=== PATIENT | female | born 1960 | race Caucasian/White ===

== ENCOUNTER 2019-04-01 07:11 | Outpatient (CLI) | payer MEDICARE, MEDICAID, SELFPAY ==
[2019-04-01 07:25] VITALS: BP 129/70; PULSE 87; RESP 18; TEMP 36.1; O2SAT 94
--- NOTE | 2019-04-01 08:51 | PC.NURSE ---
PATIENTS HGB WAS 9.3. NOTIFIED [facility], AND THEY NOTIFIED CHIKIS ARIAS. NO BLOOD TO BE GIVEN.
== END 2019-04-01 07:12 | disposition home or self-care (01) ==
PROVIDERS: PCP Family Medicine; Visit Provider Nurse Practitioner Family
DX: D64.9 Anemia, unspecified (principal)
CPT/HCPCS: 36415

== ENCOUNTER 2019-04-16 07:00 | Outpatient (CLI) | payer MEDICARE, MEDICAID, SELFPAY | END 2019-05-02 08:00 | disposition home or self-care (01) | LOC: GILAB 10-28 12:28 | PROVIDERS: PCP Family Medicine; Visit Provider Nurse Practitioner Family | DX: D64.9 Anemia, unspecified (principal) | CPT/HCPCS: 36415; 86850; 86900 ==

== ENCOUNTER → 2020-02-10 11:52 | Day surgery (SDC) | payer MEDICARE, MEDICAID, SELFPAY ==
[2020-02-10 12:30] LABS: Hematocrit 29.7 % (37.0-47.0)
== END ==
PROVIDERS: PCP Family Medicine; Visit Provider Family Medicine
DX: D64.9 Anemia, unspecified (principal)
CPT/HCPCS: 85014; 85018

== ENCOUNTER → 2020-02-18 06:54 | Day surgery (SDC) | payer MEDICARE, MEDICAID, SELFPAY ==
[2020-02-18 07:52] LABS: Hemoglobin 8.1 g/dL (11.5-15.3)
[2020-02-18 09:01] VITALS: BP 152/82; PULSE 85; RESP 18; TEMP 36.2; O2SAT 95
--- NOTE | 2020-02-18 09:03 | PC.NURSE ---
Blood transfusion cancelled d/t hgb 8.1. Dr. Brynn Owen notified of this and stated to cancel transfusion today and patient will have labs checked again later this week.
== END ==
PROVIDERS: PCP Family Medicine; Visit Provider Family Medicine
DX: D64.9 Anemia, unspecified (principal)
CPT/HCPCS: 36415; 85014; 85018

== ENCOUNTER → 2020-02-25 07:59 | Day surgery (SDC) | payer MEDICARE, MEDICAID, SELFPAY ==
[2020-02-25] VITALS (11 sets, daily range): BP systolic 90–142; BP diastolic 53–86; PULSE 66–99; RESP 16–18; TEMP 36.1–36.6; O2SAT 91–99; BMI 34.5
[2020-02-25] MEDS: acetaminophen 325 mg Tablet 650 MG PO (09:10)
[2020-02-25] MEDS: diphenhydrAMINE 25 mg Capsule PO (10:25)
--- NOTE | 2020-02-25 11:00 | PC.NURSE ---
Consent obtained and verification performed. Pre-transfusion meds given, Blood started. VSS. Patient tolerating well without difficulty. Lungs clear per auscultation. Patient sleeping after Benadryl. 3 L NC applied.
--- NOTE | 2020-02-25 14:47 | SUR.OPER ---
13:55 second unit of PRBC infusing at 150ml/hr. Patient resting in no distress.PO fluids given.
--- NOTE | 2020-04-08 08:12 | PC.NURSE ---
0730 Pt was to receive 2 units PRBC's. Hemoglobin prior to transfusion noted at 9.3. Dr. Laurence Owen notified. Orders received to cancel blood transfusion. [facility] called and updated. [facility] by medical transportation.
== END ==
PROVIDERS: PCP Family Medicine; Visit Provider Family Medicine
DX: D64.9 Anemia, unspecified (principal)
CPT/HCPCS: 36415; 36430; 86850; 86900; 86920; 96365; 96366; P9016

== ENCOUNTER 2020-03-11 11:50 | Outpatient (CLI) | payer MEDICARE, MEDICAID, SELFPAY ==
[2020-03-11 12:46] LABS: Basophils # 0.1 10^3/uL (0.0-0.1); Basophils % 1.1 %; Eosinophils # 0.4 10^3/uL (0.0-0.8); Eosinophils % 7.8 %; Hemoglobin 9.7 g/dL (11.5-15.3); Lymphocytes # 1.3 10^3/uL (0.8-4.8); Lymphocytes % 26.3 %; Mean Corpuscular HGB Conc 31.3 g/dL (30.0-36.0); Mean Corpuscular Hemoglobin 32.9 pg (28.0-34.0); Mean Corpuscular Volume 105.1 fL (81-99); Mean Platelet Volume 8.6 fL (7.4-10.4); Monocytes # 0.7 10^3/uL (0.2-0.9); Monocytes % 15.3 %; Neutrophils # 2.31 10^3/uL (1.8-7.7); Neutrophils % 48.4 %; Nucleated Red Blood Cells % 0 %; Platelet Count 201 10^3/cmm (130-400); Red Blood Count 2.95 10^6/uL (4.1-5.3); Red Cell Distribution Width 14.7 % (12.1-15.1); White Blood Count 4.8 10^3/uL (4.0-10.0)
[2020-03-11 15:56] LABS: Folate Level 5.2 ng/mL (4.8-37.3)
[2020-03-11 15:57] LABS: Lactate Dehydrogenase 256 U/L (135-214); Thyroid Stimulating Hormone 1.36 uIU/mL (0.27-4.20); Vitamin B12 332 pg/mL (232-1245)
--- NOTE | 2020-03-11 16:38 | ONC CON_ITS ---
Dr. Aldana New Patient Note Patient: Marisa Rincon Unit #: [id number]: [id number] Dicatated By: Nery Aladna M.D.Date of Visit: Mar 11, 2020 Onc MED New Patient/Consult Referring Physician: Dr. Antoine Ayala M.D. History of Present Illness: Mr. Marisa Rincon, is a 59-year-old female, who is a [facility] resident due to right-sided stroke, as per patient it happened during brain surgery for tuberosclerosis, history of status epilepticus, now with end-stage renal disease, followed by nephrology. History of acute/chronic cystitis and recurrent urine tract infection as per patient she has anemia problems since last year and required blood transfusion in December and then in January 2019 and then again on regular basis in March 2019 then April 2019 and then recently on February 10, 2020 and the last one was on February 25, 2020, every time she would receive 2 units of packed RBCs. As per medical record patient underwent EGD and colonoscopy on July 26, 2018 and showed no significant abnormality except gastric polyps/gastritis and also underwent capsule endoscopy on January 13, 2019 which showed no AVMs or potential bleeding sites seen. Anemia work-up done in [facility] office including CBC on January 30, 2020 which showed white blood count was 4.3 hemoglobin 7. 2 g, hematocrit 24 MCV 113.2 platelets 231,000 and repeat CBC on February 09, 2020 shows white blood count 5.8 hemoglobin 7.4 hematocrit 23.4 platelets 301,000 then CBC done on February 16, 2020 showed hemoglobin 7.2 hematocrit 26.1 MCV 112.1, patient was given 2 units of packed RBCs on February 10, 2020, as mentioned above and on February 25, 2020 and iron studies done on February 23, 2020 showed iron 97, iron saturation 37, TIBC 264, ferritin 1170, folate 4.6 and B12 was 96 normal being 230-1050 Patient denies any history of jaundice denies any history of urine or stool color changes denies any history of weight loss or recurrent fever or night sweats, denies any history of peripheral lymphadenopathy or abdominal fullness. Patient said she has history of kidney disease and now hemodialysis under consideration. Patient denies any smoking or alcohol use. Past Medical History: Ms. Ariass medical history consists of benign neoplasm of bilateral kidneys, chronic kidney disease, chronic obstructive pulmonary disease, convulsions, depression, gastroesophageal reflux disease, hypertension, and stroke. Past Surgical History: Ms. Choudhary surgical/procedural history consists of appendectomy, cholecystectomy, and tonsillectomy. Medications: Acetaminophen 2 Tablet (of 325 mg) Oral four times a day, ALPRAZolam 1 Tablet (of 0.5 mg) Oral b.i.d. PRN, ALPRAZolam 1 Tablet (of 0.5 mg) Oral daily, Cymbalta 1 Capsule (of 60 mg) Capsule Delayed Release Particles Oral daily, Divalproex Sodium 2 Tablet (of 500 mg) Tablet, enteric coated Oral at bedtime, Dulcolax 1 Suppository (of 10 mg) Rectal PRN, Keppra 2 Tablet (of 500 mg) Oral b.i.d., LaMICtal 1 Tablet (of 150 mg) Oral b.i.d., MiraLax (17 g) Pack Oral daily, Ondansetron HCl 1 Tablet (of 4 mg) Oral q 6 hours PRN, oxyCODONE-Acetaminophen 1 Tablet (of 5-325 mg) Oral q 4 hours PRN, Phenylephrine-[place] Butter Suppository Rectal PRN, Protonix 1 Tablet (of 40 mg) Tablet, enteric coated Oral daily, Senna 2 Capsule (of 8.6 mg) Oral at bedtime, Simvastatin 1 Tablet (of 20 mg) Oral at bedtime Allergies: Zonegran Social History: Ms. Rincon is single. Ms. Rincon has never smoked. She has no history of drinking. Family History: There is no documented family history. Review Of Symptoms: Constitutional - Appetite is good and weight is stable. No fever, night sweats, or hot flashes. Energy level is fair, ENMT - No sinus congestion/drainage. No mouth sores. No sore throat or difficulty swallowing, Hematologic/Lymphatic - No abnormal bruising or bleeding, Respiratory - Positive for shortness of breath. No cough. No pleuritic pain or hemoptysis, Cardiovascular - No angina pain. No palpitations, Gastrointestinal - No nausea or vomiting. Positive for heartburn and acid reflux. No diarrhea or constipation. No blood in the stool or black stools, Genitourinary (F) - No dysuria or hematuria. No urinary frequency. No urgency. Positive for incontinence, Musculoskeletal - Positive for joint pain, Neurologic - Positive for headache. No dizziness. Positive for numbness in right hand. No other focal neurologic symptoms, Psychiatric - No anxiety. Positive for occasional depression, Pt states she is being treated for this. No insomnia. Vital Signs: Performed on Mar 11, 2020 13:50: 0, 35.15 (HIGH), 1.78 sq.m, 60 in, 95 % (LOW), 95 /min, 16 /min, 115/67 mm(hg), 97.2 F (LOW), and 180 lbs (HIGH). Performance Status: 3 - Capable of only limited self-care, confined to bed or chair more than 50% of waking hours. (ECOG) Physical Examination: ENMT - no mouth sores, no thrush, no jaundice, Respiratory - Lungs are clear to auscultation, Cardiovascular - Regular rate and rhythm of heart, Abdomen - Soft, bowel sounds present, Extremities - , Right leg in the brace and right arm deformity but no visible edema. Lab/Imaging: Most recent lab results are not available for this patient. Impression: Macrocytic anemia most likely due to B12 deficiency as her labs done on February 23, 2020 showed B12 was 96 pg/mL normal being 230-1050, etiology of B12 deficiency could be due to malabsorption or antiseizure medication or bacterial overgrowth or excessive consumption, or hemolysis History of seizure/status epilepticus on antiseizure medication Keppra End-stage renal disease, now hemodialysis under consideration Recurrent anemia requiring multiple blood transfusion Plan: Discussed with patient regarding her labs white blood count 4.8 hemoglobin 9.7 hematocrit 31 platelets 201,000 MCV 105.1 with a normal differential Clinically, patient doing reasonably well, no new signs symptoms but with multiple comorbid conditions, her etiology of macrocytic anemia is most likely due to severe B12 deficiency which could be due to either malabsorption or bacterial overgrowth or antiseizure medication or excessive consumption. At this point we will recommend B12 supplement 1000 mcg IM weekly x4 followed by every 2 weeks until normalize followed by monthly maintenance other possibilities for macrocytic anemia could be hemolysis, so we will check serum haptoglobin, LDH, Isaac test, reticulocyte count, serum folate level, B12 level, TSH and abdominal sonogram to check spleen size and SPEP, patient return to clinic in 1 week with CBC. Signed By: Nery Aldana M.D. <<Signature on File>>
[2020-03-12 08:22] LABS: PROTEIN, TOTAL 6.2 g/dL (6.1-8.1)
[2020-03-15 16:03] LABS: ALBUMIN 3.1 g/dL (3.8-4.8); ALPHA 1 GLOBULIN 0.4 g/dL (0.2-0.3); ALPHA 2 GLOBULIN 0.8 g/dL (0.5-0.9); BETA 1 GLOBULIN 0.5 g/dL (0.4-0.6); BETA 2 GLOBULIN 0.3 g/dL (0.2-0.5); GAMMA GLOBULIN 1.1 g/dL (0.8-1.7)
== END 2020-03-11 11:51 | disposition home or self-care (01) ==
LOC: ONCMED 11:53
PROVIDERS: PCP Family Medicine; Visit Provider Internal Medicine Hematology & Oncology
DX: D53.9 Nutritional anemia, unspecified (principal); E53.8 Deficiency of other specified B group vitamins; G40.909 Epilepsy, unspecified, not intractable, without status epilepticus; N18.6 End stage renal disease; D63.1 Anemia in chronic kidney disease; Z79.899 Other long term (current) drug therapy
CPT/HCPCS: 36415; 82607; 82746; 83010; 83615; 84155; 84165; 84443; 85025; 85045; 86880; 99203

== ENCOUNTER 2020-03-17 09:40 | Outpatient (RCR) | payer MEDICARE, MEDICAID, SELFPAY ==
[2020-03-15 14:20] LABS: Basophils % 0.5 %; Eosinophils # 0.3 10^3/uL (0.0-0.8); Hematocrit 31.7 % (37.0-47.0); Hemoglobin 9.7 g/dL (11.5-15.3); Lymphocytes % 33.9 %; Mean Corpuscular HGB Conc 30.6 g/dL (30.0-36.0); Mean Corpuscular Volume 107.8 fL (81-99); Mean Platelet Volume 8.6 fL (7.4-10.4); Monocytes # 0.6 10^3/uL (0.2-0.9); Monocytes % 10.8 %; Neutrophils # 2.82 10^3/uL (1.8-7.7); Neutrophils % 48.9 %; Nucleated Red Blood Cells % 0 %; Platelet Count 209 10^3/cmm (130-400); Red Blood Count 2.94 10^6/uL (4.1-5.3); Red Cell Distribution Width 14.6 % (12.1-15.1); White Blood Count 5.8 10^3/uL (4.0-10.0)
--- NOTE | 2020-03-22 09:12 | ONC FU_ITS ---
[facility] Patient Note Patient: Marisa Rincon Unit #: [id number]: [id number] Dictated By: Jess ThompsonDate of Visit: Mar 17, 2020 Onc MED Follow-Up/Prog Note Chief Complaint: Macrocytic anemia History of Present Illness: Ms Rincon is a 59-year-old female, who is a [facility] resident due to right-sided stroke. Ms Rincon reports the stroke happened during brain surgery for tuberosclerosis, history of status epilepticus. She now with end-stage renal disease. She is followed by Dr Herman, nephrology. Ms Rincon also has a history of acute/chronic cystitis and recurrent urine tract infections. She reports that she has anemia problems since last year and required blood transfusion in December 2018, January 2019, March 2019 and April 2019. She required transfusion services again on February 10, 2020 and the last one was on February 25, 2020. She reports that with each transfusion she would receive 2 units of packed RBCs. As per her medical record, she underwent EGD and colonoscopy on July 26, 2018 and showed no significant abnormality except gastric polyps/gastritis and also underwent capsule endoscopy on January 13, 2019 which showed no AVMs or potential bleeding sites seen. Anemia work-up done in [facility] office including CBC on January 30, 2020 which showed white blood count was 4.3 hemoglobin 7. 2 g, hematocrit 24 MCV 113.2 platelets 231,000 and repeat CBC on February 09, 2020 shows white blood count 5.8 hemoglobin 7.4 hematocrit 23.4 platelets 301,000. CBC done on February 16, 2020 showed hemoglobin 7.2 hematocrit 26.1 MCV 112.1, patient was given 2 units of packed RBCs on February 10, 2020, as mentioned above and on February 25, 2020 and iron studies done on February 23, 2020 showed iron 97, iron saturation 37, TIBC 264, ferritin 1170, folate 4.6 and B12 was 96 normal being 230-1050. She denies any history of jaundice denies any history of urine or stool color changes denies any history of weight loss or recurrent fever or night sweats, denies any history of peripheral lymphadenopathy or abdominal fullness. Ms Rincon states she has history of kidney disease and now hemodialysis under consideration. She follows with Dr Herman in [place], [place]-she sees him locally and is due to see geoff again on 05/05/2020. She denies any smoking or alcohol use. Ms. Rincon is here today for a 1 week follow-up. She did see Dr. Aldana last week. She was started on B12 1000 mcg IM weekly which is being given at the [facility] in which she resides. He also requested additional labs to rule out hemolysis and requested a abdominal ultrasound to check the spleen size. The ultrasound has not yet been obtained. Her LDH was 256, folic acid 5.2, vitamin B12 332 and TSH was 1.36. Her retic count was 1.23. Her hemoglobin on 03/11/2020 was 9.7. Direct Isaac was negative. She is here today to review results of her labs as her ultrasound has not yet been obtained. We discussed her labs which are nonspecific and we are waiting for the ultrasound to be done and reported. She has no new concerns. She denies any fever or chills. She states she did get her B12 last week and tolerated this well. She denies any nausea or vomiting. She has had some intermittent constipation and diarrhea but states this is normal for her. She denies any new shortness of breath orthopnea. Her mobility is limited due to the stroke and she utilizes a power chair for mobility. She is accompanied by family at this visit. Her ECOG is 3. Past Medical History: Benign neoplasm of bilateral kidneys Chronic kidney disease Chronic obstructive pulmonary disease Convulsions Depression Gastroesophageal reflux disease Hypertension Stroke COVID in 2020 Past Surgical History: Appendectomy Cholecystectomy Tonsillectomy Allergies: Zonegran Medications: Acetaminophen 2 Tablet (of 325 mg) Oral four times a day ALPRAZolam 1 Tablet (of 0.5 mg) Oral b.i.d. PRN ALPRAZolam 1 Tablet (of 0.5 mg) Oral daily Cymbalta 1 Capsule (of 60 mg) Capsule Delayed Release Particles Oral daily Divalproex Sodium 2 Tablet (of 500 mg) Tablet, enteric coated Oral at bedtime Dulcolax 1 Suppository (of 10 mg) Rectal PRN Keppra 2 Tablet (of 500 mg) Oral b.i.d. LaMICtal 1 Tablet (of 150 mg) Oral b.i.d. MiraLax (17 g) Pack Oral daily Ondansetron HCl 1 Tablet (of 4 mg) Oral q 6 hours PRN oxyCODONE-Acetaminophen 1 Tablet (of 5-325 mg) Oral q 4 hours PRN Phenylephrine-[place] Butter Suppository Rectal PRN Protonix 1 Tablet (of 40 mg) Tablet, enteric coated Oral daily Senna 2 Capsule (of 8.6 mg) Oral at bedtime Simvastatin 1 Tablet (of 20 mg) Oral at bedtime Family History: Social History: Ms. Rincon is single. Ms. Rincon has never smoked. She has no history of drinking. Review Of Symptoms: Constitutional Denies fevers, chills, night sweats, excessive fatigue or weight loss. Allergic/Immunologic No reactions. Eyes Denies significant visual changes. No diplopia. No amaurosis. ENMT Denies changes in hearing, sore throat, mouth sores, difficulty or changes in swallowing ability, and/or sinus drainage. Endocrine No diabetes, thyroid disease or hormone replacement. Denies hot flashes or night sweats. Hematologic/Lymphatic Denies easy bruising or bleeding. The patient denies any tender or palpable lymph nodes. Respiratory Denies dyspnea on exertion, chest pain, cough or hemoptysis. Denies orthopnea. Cardiovascular Denies anginal chest pain, palpitations or orthopnea. Gastrointestinal Denies nausea, vomiting, diarrhea, GI bleeding, or constipation. Denies change in bowel habits and/or stool color, no heartburn or early satiety. Genitourinary (F) No hematuria, hesitancy, incontinence, vaginal bleeding, discharge or other problems with urination. Musculoskeletal Denies joint pain, swelling or redness. No decreased range of motion. Integumentary Denies chronic rashes, inflammation, ulcerations or skin changes. Neurologic Denies headache, blurred vision, and no areas of focal weakness or numbness. Normal gait. No sensory problems. Psychiatric Denies insomnia, depression, aren or mood swings. Vital Signs: Performed on Mar 17, 2020 09:59 Height - 60.00 in Weight - 181 lbs (HIGH) BSA - 1.79 sq.m BMI - 35.35 (HIGH) Temperature - 96.6 F (LOW) Pulse - 88 /min Respiration - 18 /min BP - 140/64 mm(hg) O2 Sat - 92 % (LOW) Pain - 0,3 - Capable of only limited self-care, confined to bed or chair more than 50% of waking hours. (ECOG) Physical Examination: Constitutional Alert, oriented, no acute distress. Skin pink, warm and dry. Head Normocephalic; atraumatic. Eyes Conjunctivae and sclerae are clear and without icterus. Pupils are reactive and equal. Neck Supple without masses or thyromegaly. No jugular venous distension. Hematologic/Lymphatic No petechiae or purpura. No tender or palpable lymph nodes in the cervical or supraclavicular areas. Respiratory Lungs are clear to auscultation without rhonchi or wheezing. Cardiovascular Regular rate and rhythm of heart without murmurs,clicks, gallops or rubs. Abdomen Non-tender, non-distended, no masses or ascites. Good bowel sounds noted in all quads. No guarding or rebound tenderness. No pulsatile masses. Back/Spine Non-tender to palpation. Extremities No visible deformities, no cyanosis, clubbing or edema. Musculoskeletal No tenderness or swelling. Limited ROM due to hx of right sided stroke. Integumentary No rashes or lesions. Neurologic Evidence of right sided stroke but speech is clear. Psychiatric Alert and oriented times three. Coherent speech. Verbalizes understanding of our discussions today. Laboratory:Test performed on Mar 11, 2020 12:30 Folate, Serum 5.2 ng/mL LDH (Total) 256 U/L TSH 1.36 uIU/mL Vitamin B12 332 pg/mL Retic Count % 1.2300 % WBC 4.8 10 3/uL RBC 2.95 10 6/uL HGB 9.7 g/dL HCT 31.0 % MCV 105.1 fL MCH 32.9 pg MCHC 31.3 g/dL RDW 14.7 % Platelet Count 201 10 3/cmm MPV 8.6 fL Neutrophils 2.31 10 3/uL Lymphocytes 1.3 10 3/uL Monocytes 0.7 10 3/uL Eosinophils 0.4 10 3/uL Basophils 0.1 10 3/uL Neutrophil % 48.4 % Lymphocyte % 26.3 % Monocyte % 15.3 % Eosinophil % 7.8 % Basophils % 1.1 % NRBC % 0 % Isaac, Direct (TU) Negative Impression: Macrocytic anemia most likely due to B12 deficiency as her labs done on February 23, 2020 showed B12 was 96 pg/mL normal being 230-1050, etiology of B12 deficiency could be due to malabsorption or antiseizure medication or bacterial overgrowth or excessive consumption, or hemolysis History of seizure/status epilepticus on antiseizure medication Keppra End-stage renal disease, now hemodialysis under consideration Recurrent anemia requiring multiple blood transfusion Dr. Aldana did see Mrs. Rincon on 03/11/2020. He requested additional labs to check for hemolysis. And those labs have thus far come back within normal limits. He also requested abdominal ultrasound to check spleen size but that has not yet occurred. Plan: PROBLEMS ADDRESSED TODAY: 1. MACROCYTIC ANEMIA A. Labs from March 12, 2020 were reviewed in detail discussed with Ms. Mott and a copy was given to her. WBC 5.6, hemoglobin 9.7, platelets 209,000 ANC is 2820. As reported above her LDH from 03/11/2020 was 256, folic acid 5.2, vitamin B12 332 and TSH was 1.36. Retic count was 1.23 and her direct Isaac was negative. SPEP was unremarkable. We reviewed these in detail and a copy was on the flow sheet with the labs from March 15, 2020. B. Continue loading B12 injections. She received her first 1 last week. C. Per Dr. Aldana's request she will have a bone marrow biopsy/aspiration work-up obtained as soon as that can be arranged. D. We will see her back after the bone marrow biopsy to review the results with Dr. Aldana. I requested a CBC CMP and erythropoietin level at that time. 2. END-STAGE RENAL DISEASE A. She has a follow-up with Dr. Herman on May 05, 2020. She did not have a CMP here in the office on either of her visits. B. [facility], her last creatinine reported was on 12/30/2018 which time it was 1.4. Her BUN was 17 and GFR calculation was 46.1. Signed By: Jess Thompson-, AOCNP Nery Aldana MD <<Signature on File>>
== END 2020-04-11 23:59 | disposition home or self-care (01) ==
LOC: ONCMED 09:40
PROVIDERS: Internal Medicine Hematology & Oncology; PCP Family Medicine; Visit Provider Nurse Practitioner
DX: D51.9 Vitamin B12 deficiency anemia, unspecified (principal); G40.909 Epilepsy, unspecified, not intractable, without status epilepticus; N18.6 End stage renal disease; Z99.2 Dependence on renal dialysis; Z79.899 Other long term (current) drug therapy
CPT/HCPCS: 85025; 99214

== ENCOUNTER 2020-04-01 08:49 | Day surgery (SDC) | payer MEDICARE, MEDICAID, SELFPAY ==
[2020-03-30 16:47] VITALS: BMI 35.7
--- NOTE | 2020-04-01 09:11 | US_ITS ---
WS: [id number] Limited abdomen ultrasound. HISTORY: Evaluate spleen only. Abdominal pain. COMPARISON: 11/21/2018 Spleen is normal size measuring 11.3 cm in length by 3 cm. No mass. No adjacent fluid. US/US abdomen limited 29711 IMPRESSION: Normal spleen.
[2020-04-01 09:35] LABS: Basophils % 0.7 %; Eosinophils # 0.3 10^3/uL (0.0-0.8); Eosinophils % 5.3 %; Hematocrit 30.8 % (37.0-47.0); Hemoglobin 9.5 g/dL (11.5-15.3); Lymphocytes # 1.7 10^3/uL (0.8-4.8); Lymphocytes % 31.5 %; Mean Corpuscular HGB Conc 30.8 g/dL (30.0-36.0); Mean Corpuscular Hemoglobin 32.9 pg (28.0-34.0); Mean Corpuscular Volume 106.6 fL (81-99); Mean Platelet Volume 10.3 fL (7.4-10.4); Monocytes # 0.5 10^3/uL (0.2-0.9); Monocytes % 8.8 %; Neutrophils # 2.89 10^3/uL (1.8-7.7); Neutrophils % 53.3 %; Nucleated Red Blood Cells % 0 %; Platelet Count 233 10^3/cmm (130-400); Red Blood Count 2.89 10^6/uL (4.1-5.3); Red Cell Distribution Width 14.6 % (12.1-15.1); White Blood Count 5.4 10^3/uL (4.0-10.0)
--- NOTE | 2020-04-01 09:38 | ANES.PREANE2 ---
Pre-Anesthetic Assessment Pre-Anesthetic Assessment: Height/Weight: Height 1.52 m Weight 83.007 kg Preop Diagnosis: anemia Proposed Procedure: Operation Date: 04/01/20 11:30 Proposed Procedures p Bone Marrow Biospy With Aspiration D64.9(Not Applicable) - Nery Aldana MD Familial anesthetic complications: none Was Beta Danish taken within 24 hours: N/A Last intake: NPO > 8 hrs Social: Social History: No alcohol and No tobacco Exam: Pre-Anes Outpt Exam: alert, oriented x 3, clear to auscultation bilaterally and regular rate & rhythm Airway: MP: 2 Dentition: False Pulmonary: Pulmonary: COPD Comments: hx covid CV/HEM: CV/HEM: Anemia and HTN : : Chronic renal Insufficiency GI: GI: GERD Metabolic: Metabolic: Hyperlipidemia Neuropsych: Neuropsych: CVA (R hemiparesis) and Seizure Comments: hx neuro Tb s/p surgery Anesthetic Plan: ASA status: 4 Anesthesia: MAC Risk of > 500 ml blood loss (7ml/kg in children): No Data Anesthesia CBC & Chem 7: 04/01/20 09:20 Cardiac Studies: No Data to Display
[2020-04-01 09:39] VITALS: BP 115/76; PULSE 75; RESP 18; TEMP 36.3; O2SAT 93
[2020-04-01] MEDS: sodium chloride 0.9% 1,000 ML 30 ML IV (11:18)
[2020-04-01 12:05] VITALS: BP 142/56; PULSE 68; RESP 18; TEMP 36.4; O2SAT 100
[2020-04-01 12:15] VITALS: BP 116/52; PULSE 100; RESP 18; O2SAT 100
[2020-04-01] MEDS: fentaNYL 50 mcg/mL INJ 2mL IVP (12:24)
--- NOTE | 2020-04-01 12:29 | P.PCN_ITS ---
Bone Marrow Biopsy Bone Marrow Biopsy: I was consulted by [] office regarding bone marrow biopsy on Marisa Rincon []. Briefly, the patient is a [59] year old [female] with [anemia]. In the Outpatient Services Department, with nursing staff and laboratory technologists in attendance, the procedure was discussed with the patient. Appropriate consent form had been signed. Appropriate alternatives, benefits and risks of procedure were discussed with the patient and she was pre- operatively assessed with a history and physical by myself and cleared for the biopsy procedure. The patient did request IV sedation and that was provided by the Anesthesia Department. Under aseptic conditions the right posterior iliac area was cleaned and prepped, local anesthesia was given and about 15 cc of bone marrow aspirate and core biopsy was obtained, patient tolerated procedure well, hemostasis was obtained, postprocedure nursing instructions were given and sample was sent for routine histopathology, flow cytometry/cytogenetics and FISH for MDS Thank you for allowing me to participate in this patient's care and diagnosis. Coding Level of Care Code Acute Mechanical Fitter for Luda Beltran
[2020-04-01 12:30] VITALS: BP 110/57; PULSE 67; RESP 18; O2SAT 96
[2020-04-01 12:49] VITALS: BP 123/48; PULSE 69; RESP 18; O2SAT 100
--- NOTE | 2020-04-01 14:49 | ANE.PACU2 ---
Inpatient post-anesthesia follow up: Airway intact: Yes Vital signs: Temperature 97.6 F Pulse Rate 69 Respiratory Rate 18 Blood Pressure 123/48 Pulse Oximetry 100 Oxygen Delivery Me thod Room Air Oxygen Flow Rate 3 Fraction of Inspir ed Oxygen Hydration adequate: Yes Nausea and vomiting: No Pain level: 4 Mental status: Baseline
[2020-04-06 08:13] LABS: Miscellaneous Test See Scanned Lab Rpt
[2020-04-16 12:26] LABS: Miscellaneous Test See Scanned Lab Rpt
== END 2020-04-01 13:05 | disposition home or self-care (01) ==
PROVIDERS: PCP Family Medicine; Visit Provider Internal Medicine Hematology & Oncology
PROC: (CPT 38221; principal; 2020-04-01 11:30)
DX: D64.9 Anemia, unspecified (principal); J44.9 Chronic obstructive pulmonary disease, unspecified; Z86.16 Personal history of COVID-19; I10 Essential (primary) hypertension; E78.5 Hyperlipidemia, unspecified; I69.851 Hemiplegia and hemiparesis following other cerebrovascular disease affecting right dominant side; K21.9 Gastro-esophageal reflux disease without esophagitis
CPT/HCPCS: 12345; 36415; 38222; 76705; 85025; 88237; 88264; 88271; 88275; 88305; 88367; 88374; J3010; J7030

== ENCOUNTER 2020-04-06 09:21 | Outpatient (CLI) | payer MEDICARE, MEDICAID, SELFPAY ==
[2020-04-06 10:23] LABS: Hemoglobin 8.6 g/dL (11.5-15.3)
[2020-04-08 09:24] LABS: Hemoglobin 9.3 g/dL (11.5-15.3)
== END 2020-04-06 09:22 | disposition home or self-care (01) ==
LOC: LAB 09:26
PROVIDERS: PCP Family Medicine; Visit Provider Family Medicine
DX: D64.9 Anemia, unspecified (principal)
CPT/HCPCS: 36415; 85018

== ENCOUNTER 2020-04-15 05:55 | Outpatient (RCR) | payer MEDICARE, MEDICAID, SELFPAY ==
[2020-04-15 13:34] LABS: Basophils # 0.1 10^3/uL (0.0-0.1); Basophils % 0.8 %; Eosinophils # 0.3 10^3/uL (0.0-0.8); Eosinophils % 4.9 %; Hematocrit 28.4 % (37.0-47.0); Hemoglobin 8.7 g/dL (11.5-15.3); Lymphocytes # 1.9 10^3/uL (0.8-4.8); Lymphocytes % 28.7 %; Mean Corpuscular HGB Conc 30.6 g/dL (30.0-36.0); Mean Corpuscular Hemoglobin 33.2 pg (28.0-34.0); Mean Corpuscular Volume 108.4 fL (81-99); Mean Platelet Volume 8.8 fL (7.4-10.4); Monocytes # 0.6 10^3/uL (0.2-0.9); Monocytes % 8.7 %; Neutrophils # 3.63 10^3/uL (1.8-7.7); Neutrophils % 56.1 %; Nucleated Red Blood Cells % 0 %; Platelet Count 354 10^3/cmm (130-400); Red Blood Count 2.62 10^6/uL (4.1-5.3); Red Cell Distribution Width 13.8 % (12.1-15.1); White Blood Count 6.5 10^3/uL (4.0-10.0)
[2020-04-15 13:49] LABS: Alanine Aminotransferase 6 U/L (0-33); Albumin Level 3.6 g/dL (3.5-5.2); Alkaline Phosphatase 60 IU/L (35-105); Anion Gap 13.1 (5-19); Aspartate Amino Transferase 11 U/L (0-32); Blood Urea Nitrogen 39 mg/dL (6-20); Carbon Dioxide 24 mmol/L (22-29); Chloride 104 mmol/L (98-107); Globulin 3.4 g/dL (1.3-4.6); Glucose 119 mg/dL (65-115); Osmolality Calculated 295 mOsm/kg (285-295); Potassium 4.1 mmol/L (3.5-5.1); Sodium 137 mmol/L (136-145); Total Bilirubin 0.2 mg/dL (0.15-1.2)
--- NOTE | 2020-04-15 16:07 | ONC FU_ITS ---
Dr. Aldana follow up note Patient: Marisa Rincon Unit #: [id number]: 1960 Dicatated By: Nery Aldana M.D.Date of Visit:Apr 15, 2020 Onc Med Follow-up/Prog Note History of Present Illness: Ms Rincon is a 59-year-old female, who is a intermediate resident due to right-sided stroke. Ms Rincon reports the stroke happened during brain surgery for tuberosclerosis, history of status epilepticus. She now with end-stage renal disease. She is followed by Dr Herman, nephrology. Ms Rincon also has a history of acute/chronic cystitis and recurrent urine tract infections. She reports that she has anemia problems since last year and required blood transfusion in December 2018, January 2019, March 2019 and April 2019. She required transfusion services again on February 10, 2020 and the last one was on February 25, 2020. She reports that with each transfusion she would receive 2 units of packed RBCs. As per her medical record, she underwent EGD and colonoscopy on July 26, 2018 and showed no significant abnormality except gastric polyps/gastritis and also underwent capsule endoscopy on January 13, 2019 which showed no AVMs or potential bleeding sites seen. Anemia work-up done in [facility] office including CBC on January 30, 2020 which showed white blood count was 4.3 hemoglobin 7. 2 g, hematocrit 24 MCV 113.2 platelets 231,000 and repeat CBC on February 09, 2020 shows white blood count 5.8 hemoglobin 7.4 hematocrit 23.4 platelets 301,000. CBC done on February 16, 2020 showed hemoglobin 7.2 hematocrit 26.1 MCV 112.1, patient was given 2 units of packed RBCs on February 10, 2020, as mentioned above and on February 25, 2020 and iron studies done on February 23, 2020 showed iron 97, iron saturation 37, TIBC 264, ferritin 1170, folate 4.6 and B12 was 96 normal being 230-1050. She denies any history of jaundice denies any history of urine or stool color changes denies any history of weight loss or recurrent fever or night sweats, denies any history of peripheral lymphadenopathy or abdominal fullness. Ms Rincon states she has history of kidney disease and now hemodialysis under consideration. She follows with Dr Herman in [place], [place]-she sees him locally and is due to see geoff again on 05/05/2020. She denies any smoking or alcohol use. She was started on B12 1000 mcg IM weekly which is being given at the senior living facility in which she resides. . Her LDH was 256, folic acid 5.2, vitamin B12 332 and TSH was 1.36. Her retic count was 1.23. Her hemoglobin on 03/11/2020 was 9.7. Direct Isaac was negative.Haptoglobin 189, SPEP shows no M spike Bone marrow evaluation done on April 01, 2020 showed no overt dyspoietic or megaloblastic changes seen. No evidence of bone marrow infiltrative disorder. Significant increased storage iron, no ring sideroblasts. No significant reticulin fibrosis., Flow cytometry did not detect any aberrant myeloid or lymphoid population FISH for MDS is pending Came for follow-up, denies any acute complaints, no fever chills, no nausea or vomiting, no diarrhea or constipation, no melena or hematochezia, no jaundice, no shortness of breath or palpitation at rest, tolerating parenteral B12 supplement well. Medications: Acetaminophen 2 Tablet (of 325 mg) Oral four times a day, ALPRAZolam 1 Tablet (of 0.5 mg) Oral b.i.d. PRN, ALPRAZolam 1 Tablet (of 0.5 mg) Oral daily, Cymbalta 1 Capsule (of 60 mg) Capsule Delayed Release Particles Oral daily, Divalproex Sodium 2 Tablet (of 500 mg) Tablet, enteric coated Oral at bedtime, Dulcolax 1 Suppository (of 10 mg) Rectal PRN, Keppra 2 Tablet (of 500 mg) Oral b.i.d., LaMICtal 1 Tablet (of 150 mg) Oral b.i.d., MiraLax (17 g) Pack Oral daily, Ondansetron HCl 1 Tablet (of 4 mg) Oral q 6 hours PRN, oxyCODONE-Acetaminophen 1 Tablet (of 5-325 mg) Oral q 4 hours PRN, Phenylephrine-[place] Butter Suppository Rectal PRN, Protonix 1 Tablet (of 40 mg) Tablet, enteric coated Oral daily, Senna 2 Capsule (of 8.6 mg) Oral at bedtime, Simvastatin 1 Tablet (of 20 mg) Oral at bedtime Allergies: Zonegran Review of Systems: Review of Systems is not available for this patient. Vital Signs: Performed on Apr 15, 2020 14:57 Height - 60.00 in Weight - 182.6 lbs (HIGH) BSA - 1.80 sq.m BMI - 35.66 (HIGH) Temperature - 96.5 F (LOW) Pulse - 96 /min Respiration - 20 /min BP - 103/51 mm(hg) O2 Sat - 92 % (LOW) Pain - 0 Fatigue - 0 Performance Status: 3 - Capable of only limited self-care, confined to bed or chair more than 50% of waking hours. (ECOG) Physical Examination: ENMT - No mouth sores, no thrush, no jaundice, Respiratory - Lungs are clear to auscultation, Cardiovascular - Regular rate and rhythm of heart, Abdomen - Soft, bowel sounds present, Extremities - No visible edema. Lab/Imaging: Test performed on Mar 15, 2020 13:50 WBC 5.8 10 3/uL RBC 2.94 10 6/uL HGB 9.7 g/dL HCT 31.7 % MCV 107.8 fL MCH 33.0 pg MCHC 30.6 g/dL RDW 14.6 % Platelet Count 209 10 3/cmm MPV 8.6 fL Neutrophils 2.82 10 3/uL Lymphocytes 2.0 10 3/uL Monocytes 0.6 10 3/uL Eosinophils 0.3 10 3/uL Basophils 0.0 10 3/uL Neutrophil % 48.9 % Lymphocyte % 33.9 % Monocyte % 10.8 % Eosinophil % 5.0 % Basophils % 0.5 % NRBC % 0 % Test performed on Mar 11, 2020 12:30 Folate, Serum 5.2 ng/mL LDH (Total) 256 U/L TSH 1.36 uIU/mL Vitamin B12 332 pg/mL Retic Count % 1.2300 % Isaac, Direct (TU) Negative Impression: Macrocytic anemia most likely due to B12 deficiency as her labs done on February 23, 2020 showed B12 was 96 pg/mL normal being 230-1050, etiology of B12 deficiency could be due to malabsorption or antiseizure medication or bacterial overgrowth or excessive consumption, or hemolysis, Work-up for hemolysis including TU, haptoglobin, and bilirubin were normal, LDH was slightly up at 256, TSH 1.36, SPEP normal, no monoclonal gamma protein,Reticulocyte count 1.23. Abdominal sonogram done on April 01, 2020 shows no splenomegaly Bone marrow evaluation done on April 01, 2020 showed no overt dyspoietic or megaloblastic changes seen. No evidence of bone marrow infiltrative disorder. No significant reticulin fibrosis., Flow cytometry shows no abnormality. FISH for MDS is pending History of seizure/status epilepticus on antiseizure medication Keppra End-stage renal disease, now hemodialysis under consideration Recurrent anemia requiring multiple blood transfusion Plan: Discussed with patient regarding her labs white blood count 6.5 hemoglobin 8.7 hematocrit 28.4 platelets 354,000 MCV 100.4 CMP within normal limits Clinically, patient is done reasonably well, she has well compensated macrocytic mild/moderate anemia, her anemia work-up including work-up for hemolysis, SPEP, bone marrow evaluation remained inconclusive except recent history of B12 deficiency and folate on the lower side of normal, low reticulocyte count but bone marrow shows no evidence of mild dysplasia, she could have early MDS with no obvious morphological changes. FISH for MDS is pending. At this point, will consider adding folic acid 1 mg p.o. twice daily and continue with parenteral B12 supplement and also do PNH screening and then she will return to clinic in 1 month with CBC B12 level and folate level. Signed By: Nery Aldana M.D. <<Signature on File>>
[2020-04-16 16:38] LABS: Erythropoietin 9.7 mIU/mL (2.6-18.5)
== END 2020-05-09 23:59 | disposition home or self-care (01) ==
LOC: ONCMED 05:55
PROVIDERS: PCP Family Medicine; Visit Provider Internal Medicine Hematology & Oncology
DX: D51.9 Vitamin B12 deficiency anemia, unspecified (principal); G40.909 Epilepsy, unspecified, not intractable, without status epilepticus; N18.6 End stage renal disease; Z99.2 Dependence on renal dialysis; Z79.899 Other long term (current) drug therapy
CPT/HCPCS: 36415; 80053; 82668; 85025; 86356; 99214

== ENCOUNTER 2020-05-04 11:43 | Outpatient (CLI) | payer MEDICARE, MEDICAID, SELFPAY ==
[2020-05-04 12:54] LABS: Calcium 9.1 mg/dL (8.5-10.5); Parathyroid Hormone 55.1 pg/mL (15-65)
[2020-05-05 14:22] LABS: Anti-Nuclear Antibody Screen NEGATIVE (NEGATIVE)
== END 2020-05-04 11:44 | disposition home or self-care (01) ==
LOC: LAB 11:46
PROVIDERS: PCP Family Medicine; Visit Provider Family Medicine
DX: Q85.1 Tuberous sclerosis (principal)
CPT/HCPCS: 82310; 83970; 86038

== ENCOUNTER 2020-05-05 10:24 | Outpatient (CLI) | payer MEDICARE, MEDICAID, SELFPAY ==
[2020-05-05 10:51] LABS: Basophils % 0.7 %; Eosinophils # 0.3 10^3/uL (0.0-0.8); Eosinophils % 4.5 %; Hemoglobin 8.6 g/dL (11.5-15.3); Lymphocytes # 1.9 10^3/uL (0.8-4.8); Lymphocytes % 34.4 %; Mean Corpuscular HGB Conc 30.7 g/dL (30.0-36.0); Mean Corpuscular Hemoglobin 33.5 pg (28.0-34.0); Mean Corpuscular Volume 108.9 fL (81-99); Mean Platelet Volume 9.1 fL (7.4-10.4); Monocytes # 0.5 10^3/uL (0.2-0.9); Monocytes % 9.7 %; Neutrophils % 50.2 %; Nucleated Red Blood Cells % 0 %; Platelet Count 313 10^3/cmm (130-400); Red Blood Count 2.57 10^6/uL (4.1-5.3); Red Cell Distribution Width 13.2 % (12.1-15.1); White Blood Count 5.6 10^3/uL (4.0-10.0)
== END 2020-05-05 10:25 | disposition home or self-care (01) ==
PROVIDERS: PCP Family Medicine; Visit Provider Family Medicine
DX: D64.9 Anemia, unspecified (principal)
CPT/HCPCS: 85025

== ENCOUNTER 2020-05-12 05:53 | Outpatient (RCR) | payer MEDICARE, MEDICAID, SELFPAY ==
[2020-05-12 09:38] LABS: Basophils % 0.8 %; Eosinophils # 0.3 10^3/uL (0.0-0.8); Hematocrit 27.6 % (37.0-47.0); Hemoglobin 8.4 g/dL (11.5-15.3); Lymphocytes # 1.7 10^3/uL (0.8-4.8); Lymphocytes % 34.7 %; Mean Corpuscular HGB Conc 30.4 g/dL (30.0-36.0); Mean Corpuscular Volume 111.7 fL (81-99); Mean Platelet Volume 9.1 fL (7.4-10.4); Monocytes # 0.5 10^3/uL (0.2-0.9); Monocytes % 10.7 %; Neutrophils # 2.38 10^3/uL (1.8-7.7); Nucleated Red Blood Cells % 0 %; Platelet Count 289 10^3/cmm (130-400); Red Blood Count 2.47 10^6/uL (4.1-5.3); Red Cell Distribution Width 13.1 % (12.1-15.1)
[2020-05-12 10:05] LABS: Vitamin B12 1430 pg/mL (232-1245)
--- NOTE | 2020-05-28 22:30 | ONC FU_ITS ---
[facility] Patient Note Patient: Marisa Rincon Unit #: [id number]: 1960 Dictated By: Jess ThompsonDate of Visit: May 12, 2020 Onc MED Follow-Up/Prog Note Chief Complaint: Macrocytic anemia History of Present Illness: Ms Rincon is a 59-year-old female, who is a prison resident due to right-sided stroke. Ms Rincon reports the stroke happened during brain surgery for tuberosclerosis, history of status epilepticus. She now with end-stage renal disease. She is followed by Dr Herman, nephrology. Ms Rincon also has a history of acute/chronic cystitis and recurrent urine tract infections. She reports that she has anemia problems since last year and required blood transfusion in December 2018, January 2019, March 2019 and April 2019. She required transfusion services again on February 10, 2020 and the last one was on February 25, 2020. She reports that with each transfusion she would receive 2 units of packed RBCs. As per her medical record, she underwent EGD and colonoscopy on July 26, 2018 and showed no significant abnormality except gastric polyps/gastritis and also underwent capsule endoscopy on January 13, 2019 which showed no AVMs or potential bleeding sites seen. Anemia work-up done in [facility] office including CBC on January 30, 2020 which showed white blood count was 4.3 hemoglobin 7. 2 g, hematocrit 24 MCV 113.2 platelets 231,000 and repeat CBC on February 09, 2020 shows white blood count 5.8 hemoglobin 7.4 hematocrit 23.4 platelets 301,000. CBC done on February 16, 2020 showed hemoglobin 7.2 hematocrit 26.1 MCV 112.1, patient was given 2 units of packed RBCs on February 10, 2020, as mentioned above and on February 25, 2020 and iron studies done on February 23, 2020 showed iron 97, iron saturation 37, TIBC 264, ferritin 1170, folate 4.6 and B12 was 96 normal being 230-1050. She denies any history of jaundice; denies any history of urine or stool color changes; denies any history of weight loss or recurrent fever or night sweats. she also denies any history of peripheral lymphadenopathy or abdominal fullness. Ms Rincon states she has history of kidney disease and now hemodialysis isunder consideration. She follows with Dr Herman in [place], [place]-she sees him locally and was due to see him again on 05/05/2020. She denies any smoking or alcohol use. She was started on B12 1000 mcg IM weekly which [facility]. In 2019, Her LDH was 256, folic acid 5.2, vitamin B12 332 and TSH was 1.36. Her retic count was 1.23. Her hemoglobin on 03/11/2020 was 9.7. Direct Isaac was negative.Haptoglobin 189, SPEP showed no M spike. On 04/01/2020 she did have CBC and bone marrow biopsy and aspiration. The bone marrow reported normal to mildly hypocellular marrow for age approximately 10% up to 30 to 40% cellular and areas with trilineage [place] is demonstrated on core biopsy material limited morphologic assessment due to spicular aspirate smears; no overt dyspoietic or meglo changes were seen. There was no evidence of bone marrow infiltrative disorders detected; significantly increased storage iron no ring cider blast forms seen iron special stains performed on the core biopsy both clot section blocks and an aspirate smear. No significant reticulin fibrosis seen on reticulin special stain. PAS special stain shows findings compatible with a calculated ME ratio. The chromosome analysis demonstrated normal female karyotype 46, XX and additionally no assay specific abnormalities were detected on the MDS FISH panel. Ms Rincon is here today for followup. Her hemoglobin from today continues to slowly decline at 8.4. Her hemoglobin on April 15, 2020 was 8.7. Her MCV is 111.7 white count 5.0 platelets 289,000 and ANC is 2380. Her B12 today is reported at 1430. She is doing B12 injections at her residential care center. Erythropoietin level on April 15, 2020 was 9.7. Mrs. Mott has no new concerns today. She states overall she feels about the same. She is had no new shortness of breath orthopnea. She denies any bruising or bleeding. She states her appetite continues to be about the same she still has limited mobility due to the right sided stroke. She is had no further strokelike symptoms. She denies any other concerns today. Her ECOG is 3 due to her stroke. Past Medical History: Benign neoplasm of bilateral kidneys Chronic kidney disease Chronic obstructive pulmonary disease Convulsions Depression Gastroesophageal reflux disease Hypertension Stroke COVID in 2020 Past Surgical History: Appendectomy Cholecystectomy Tonsillectomy Allergies: Zonegran Medications: Acetaminophen 2 Tablet (of 325 mg) Oral four times a day ALPRAZolam 1 Tablet (of 0.5 mg) Oral b.i.d. PRN ALPRAZolam 1 Tablet (of 0.5 mg) Oral daily Cymbalta 1 Capsule (of 60 mg) Capsule Delayed Release Particles Oral daily Divalproex Sodium 2 Tablet (of 500 mg) Tablet, enteric coated Oral at bedtime Dulcolax 1 Suppository (of 10 mg) Rectal PRN Folic Acid 1 Tablet (of 400 mcg) Oral daily Keppra 2 Tablet (of 500 mg) Oral b.i.d. LaMICtal 1 Tablet (of 150 mg) Oral b.i.d. MiraLax (17 g) Pack Oral daily Ondansetron HCl 1 Tablet (of 4 mg) Oral q 6 hours PRN oxyCODONE-Acetaminophen 1 Tablet (of 5-325 mg) Oral q 4 hours PRN Phenylephrine-[place] Butter Suppository Rectal PRN Protonix 1 Tablet (of 40 mg) Tablet, enteric coated Oral daily Senna 2 Capsule (of 8.6 mg) Oral at bedtime Simvastatin 1 Tablet (of 20 mg) Oral at bedtime Zofran 1 - 2 Tablet (of 4 mg) Oral q 4 to 6 hours PRN Family History: Social History: Ms. Rincon is single. Ms. Rincon has never smoked. She has no history of drinking. Review Of Symptoms: Constitutional Denies fevers, chills, night sweats, excessive fatigue or weight loss. Allergic/Immunologic No reactions. Eyes Denies significant visual changes. No diplopia. No amaurosis. ENMT Denies changes in hearing, sore throat, mouth sores, difficulty or changes in swallowing ability, and/or sinus drainage. Hematologic/Lymphatic Denies easy bruising or bleeding. The patient denies any tender or palpable lymph nodes. Respiratory Denies dyspnea on exertion, chest pain, cough or hemoptysis. Denies orthopnea. Cardiovascular Denies anginal chest pain, palpitations or orthopnea. Gastrointestinal Denies nausea, vomiting, diarrhea, GI bleeding, or constipation. Denies change in bowel habits and/or stool color, no heartburn or early satiety. Genitourinary (F) No hematuria, hesitancy, incontinence, vaginal bleeding, discharge or other problems with urination. Musculoskeletal Denies joint pain, swelling or redness. No decreased range of motion. Integumentary Denies chronic rashes, inflammation, ulcerations or skin changes. Neurologic Denies headache, blurred vision, and no areas of focal weakness or numbness. Normal gait. No sensory problems. Psychiatric Denies insomnia, depression, aren or mood swings. Vital Signs: Performed on May 12, 2020 10:57 Height - 60.00 in Weight - 182 lbs (LOW) BSA - 1.79 sq.m BMI - 35.54 (HIGH) Temperature - 97.6 F (LOW) Pulse - 89 /min Respiration - 19 /min BP - 100/67 mm(hg) O2 Sat - 90 % (LOW) Pain - 0,3 - Capable of only limited self-care, confined to bed or chair more than 50% of waking hours. (ECOG) Physical Examination: Constitutional Alert, oriented, no acute distress. Skin pink, warm and dry. Head Normocephalic; atraumatic. Eyes Conjunctivae and sclerae are clear and without icterus. Pupils are reactive and equal. Neck Supple without masses or thyromegaly. No jugular venous distension. Hematologic/Lymphatic No petechiae or purpura. No tender or palpable lymph nodes in the cervical or supraclavicular areas. Respiratory Lungs are clear to auscultation without rhonchi or wheezing. Cardiovascular Regular rate and rhythm of heart without murmurs,clicks, gallops or rubs. Abdomen Non-tender, non-distended, no masses or ascites. Good bowel sounds noted in all quads. No guarding or rebound tenderness. No pulsatile masses. Back/Spine Non-tender to palpation. Extremities No visible deformities, no cyanosis, clubbing or edema. Musculoskeletal No tenderness or swelling. Limited ROM due to hx of right sided stroke. Utilizes electric wheelchair for mobility. Integumentary No rashes or lesions. Neurologic Evidence of right sided stroke but speech is clear. Psychiatric Alert and oriented times three. Coherent speech. Verbalizes understanding of our discussions today. Laboratory:Test performed on May 12, 2020 08:50 Vitamin B12 1430 pg/mL WBC 5.0 10 3/uL RBC 2.47 10 6/uL HGB 8.4 g/dL HCT 27.6 % MCV 111.7 fL MCH 34.0 pg MCHC 30.4 g/dL RDW 13.1 % Platelet Count 289 10 3/cmm MPV 9.1 fL Neutrophils 2.38 10 3/uL Lymphocytes 1.7 10 3/uL Monocytes 0.5 10 3/uL Eosinophils 0.3 10 3/uL Basophils 0.0 10 3/uL Neutrophil % 48.0 % Lymphocyte % 34.7 % Monocyte % 10.7 % Eosinophil % 5.0 % Basophils % 0.8 % NRBC % 0 % Test performed on Apr 15, 2020 13:16 Sodium 137 mmol/L Potassium 4.1 mmol/L Chloride 104 mmol/L CO2 24 mmol/L Anion Gap 13.1 BUN 39 mg/dL Creatinine 2.7 mg/dL Cr Clearance (Est) 29.33 mL/min eGFR 18.0 mL/min Glucose 119 mg/dL Osmolality - Calculated 295 mOsm/kg Calcium 9.0 mg/dL Protein, Total 7.0 g/dL Albumin 3.6 g/dL Globulin 3.4 g/dL Bilirubin, Total 0.2 mg/dL ALT (SGPT) 6 U/L AST (SGOT) 11 U/L Alkaline Phosphatase 60 IU/L Erythropoietin 9.7 mIU/mL Test performed on Mar 11, 2020 12:30 Folate, Serum 5.2 ng/mL LDH (Total) 256 U/L TSH 1.36 uIU/mL Retic Count % 1.2300 % Isaac, Direct (TU) Negative Impression: PROBLEMS ADDRESSED TODAYMacrocytic anemia most likely due to B12 deficiency as her labs done on February 23, 2020 showed B12 was 96 pg/mL normal being 230-1050, etiology of B12 deficiency could be due to malabsorption or antiseizure medication or bacterial overgrowth or excessive consumption, or hemolysis, Work-up for hemolysis including TU, haptoglobin, and bilirubin were normal, LDH was slightly up at 256, TSH 1.36, SPEP normal, no monoclonal gamma protein,Reticulocyte count 1.23. Abdominal sonogram done on April 01, 2020 shows no splenomegaly Bone marrow evaluation done on April 01, 2020 showed no overt dyspoietic or megaloblastic changes seen. No evidence of bone marrow infiltrative disorder. No significant reticulin fibrosis., Flow cytometry shows no abnormality. FISH for MDS is pending History of seizure/status epilepticus on antiseizure medication Keppra End-stage renal disease, now hemodialysis under consideration Recurrent anemia requiring multiple blood transfusion Plan: PROBLEMS ADDRESSED TODAY 1. Persistent macrocytic anemia Clinically, patient is done reasonably well, she has well compensated macrocytic mild/moderate anemia, her anemia work-up including work-up for hemolysis, SPEP, bone marrow evaluation remained inconclusive except recent history of B12 deficiency and folate on the lower side of normal, low reticulocyte count but bone marrow shows no evidence of mild dysplasia, she could have early MDS with no obvious morphological changes. FISH for MDS is unremarkable. She is currently on Folic Acid 1 mg po twice daily and parental B12 replacement. A. Continue current plan of care with folic acid and parenteral B12 replacement. B. Today's labs and her FISH results were reviewed in detail and discussed with Ms. Mott and her caregiver a copy was given to her. WBC 5.0, hemoglobin 8.4, platelets 289,000 ANC 2380. FISH as discussed above. C. After discussing her FISH for MDS results as well as her blood counts with Dr. Aldana, it was recommended that she pursue second opinion at [place] as we are unable to completely identify why she has persistent anemia. She is agreeable to this and a referral will be made. D. We will see her back after her referral/consultation with hematology at [place]. E. Mrs. Mott instructed to contact us in interim should questions or problems arise. Signed By: Jess Thompson-OSVALDO, AOJOYP Kenan Aldana MD <<Signature on File>>
== END 2020-06-09 23:59 | disposition home or self-care (01) ==
LOC: ONCMED 05:53
PROVIDERS: PCP Family Medicine; Visit Provider Nurse Practitioner
DX: D51.9 Vitamin B12 deficiency anemia, unspecified (principal); G40.909 Epilepsy, unspecified, not intractable, without status epilepticus; N18.6 End stage renal disease; Z99.2 Dependence on renal dialysis; Z79.899 Other long term (current) drug therapy
CPT/HCPCS: 82607; 85025; 99214

== ENCOUNTER 2020-05-17 08:13 | Outpatient (CLI) | payer MEDICARE, MEDICAID, SELFPAY ==
[2020-05-17 08:41] LABS: Basophils % 0.7 %; Eosinophils # 0.2 10^3/uL (0.0-0.8); Eosinophils % 3.3 %; Hematocrit 29.5 % (37.0-47.0); Lymphocytes # 1.9 10^3/uL (0.8-4.8); Lymphocytes % 34.5 %; Mean Corpuscular HGB Conc 30.5 g/dL (30.0-36.0); Mean Corpuscular Hemoglobin 32.7 pg (28.0-34.0); Mean Corpuscular Volume 107.3 fL (81-99); Mean Platelet Volume 9.4 fL (7.4-10.4); Monocytes # 0.5 10^3/uL (0.2-0.9); Monocytes % 9.5 %; Neutrophils # 2.85 10^3/uL (1.8-7.7); Neutrophils % 51.8 %; Nucleated Red Blood Cells % 0 %; Platelet Count 296 10^3/cmm (130-400); Red Blood Count 2.75 10^6/uL (4.1-5.3); Red Cell Distribution Width 12.6 % (12.1-15.1); White Blood Count 5.5 10^3/uL (4.0-10.0)
== END 2020-05-17 08:14 | disposition home or self-care (01) ==
LOC: LAB 08:18
PROVIDERS: PCP Family Medicine; Visit Provider Family Medicine
DX: D64.9 Anemia, unspecified (principal)
CPT/HCPCS: 85025

== ENCOUNTER → 2020-07-29 06:03 | Day surgery (SDC) | payer MEDICARE, MEDICAID, SELFPAY ==
[2020-07-29 06:45] LABS: Hematocrit 28.3 % (37.0-47.0); Hemoglobin 8.7 g/dL (11.5-15.3)
== END ==
LOC: OPS 06:08 → GILAB 06:15
PROVIDERS: PCP Family Medicine; Visit Provider Family Medicine
DX: D64.9 Anemia, unspecified (principal); Q85.1 Tuberous sclerosis
CPT/HCPCS: 85014; 85018; 86850; 86900

== ENCOUNTER 2020-08-19 17:09 | Outpatient (CLI) | payer MEDICARE, MEDICAID, SELFPAY ==
[2020-08-19 17:31] LABS: Basophils # 0.1 10^3/uL (0.0-0.1); Basophils % 0.8 %; Eosinophils # 0.2 10^3/uL (0.0-0.8); Eosinophils % 3.1 %; Hematocrit 28.2 % (37.0-47.0); Hemoglobin 8.7 g/dL (11.5-15.3); Lymphocytes # 2.1 10^3/uL (0.8-4.8); Lymphocytes % 32.4 %; Mean Corpuscular HGB Conc 30.9 g/dL (30.0-36.0); Mean Corpuscular Hemoglobin 32.1 pg (28.0-34.0); Mean Corpuscular Volume 104.1 fL (81-99); Mean Platelet Volume 9.3 fL (7.4-10.4); Monocytes # 0.6 10^3/uL (0.2-0.9); Monocytes % 9.3 %; Neutrophils # 3.44 10^3/uL (1.8-7.7); Neutrophils % 54.1 %; Nucleated Red Blood Cells % 0 %; Platelet Count 339 10^3/cmm (130-400); Red Blood Count 2.71 10^6/uL (4.1-5.3); Red Cell Distribution Width 11.9 % (12.1-15.1); White Blood Count 6.4 10^3/uL (4.0-10.0)
[2020-08-19 18:13] LABS: Anion Gap 15.8 (5-19); Blood Urea Nitrogen 66 mg/dL (8-23); Calcium 8.3 mg/dL (8.5-10.5); Carbon Dioxide 22 mmol/L (22-29); Chloride 106 mmol/L (98-107); Glomerular Filtration Rate 19.6 mL/min (90-130); Glucose 97 mg/dL (65-115); Osmolality Calculated 307 mOsm/kg (285-295); Potassium 4.8 mmol/L (3.5-5.1); Sodium 139 mmol/L (136-145); Thyroid Stimulating Hormone 0.29 uIU/mL (0.27-4.20)
== END 2020-08-19 17:10 | disposition home or self-care (01) ==
LOC: LAB 17:12
PROVIDERS: PCP Family Medicine; Visit Provider Family Medicine
DX: I10 Essential (primary) hypertension (principal); D30.02 Benign neoplasm of left kidney
CPT/HCPCS: 80048; 84443; 85025

== ENCOUNTER → 2020-08-27 09:34 | Day surgery (SDC) | payer MEDICARE, MEDICAID, SELFPAY ==
[2020-08-27 09:49] VITALS: BP 135/65; PULSE 77; RESP 18; TEMP 36.3; O2SAT 97; BMI 37.3
[2020-08-27] MEDS: darbepoetin 40 mcg/mL INJ SUBCUT (09:57)
== END ==
PROVIDERS: PCP Family Medicine; Visit Provider Registered Nurse
DX: D63.1 Anemia in chronic kidney disease (principal)
CPT/HCPCS: 96372; J0881

== ENCOUNTER 2021-03-08 07:01 | Outpatient (CLI) | payer MEDICARE, MEDICAID, SELFPAY ==
[2021-03-08 07:57] LABS: Basophils % 0.6 %; Eosinophils # 0.3 10^3/uL (0.0-0.8); Eosinophils % 4.4 %; Hematocrit 24.8 % (37.0-47.0); Hemoglobin 7.6 g/dL (11.5-15.3); Lymphocytes # 2.3 10^3/uL (0.8-4.8); Lymphocytes % 36.9 %; Mean Corpuscular HGB Conc 30.6 g/dL (30.0-36.0); Mean Corpuscular Hemoglobin 31.4 pg (28.0-34.0); Mean Corpuscular Volume 102.5 fl (81-99); Mean Platelet Volume 9.5 fL (7.4-10.4); Monocytes # 0.7 10^3/uL (0.2-0.9); Monocytes % 10.3 %; Neutrophils # 2.97 10^3/uL (1.8-7.7); Nucleated Red Blood Cells % 0 %; Platelet Count 334 10^3/cmm (130-400); Red Blood Count 2.42 10^6/uL (4.1-5.3); Red Cell Distribution Width 12.1 % (12.1-15.1); White Blood Count 6.3 10^3/uL (4.0-10.0)
== END 2021-03-08 07:02 | disposition home or self-care (01) ==
PROVIDERS: PCP Family Medicine; Visit Provider Family Medicine
DX: D64.9 Anemia, unspecified (principal)
CPT/HCPCS: 85025

== ENCOUNTER → 2021-03-09 06:49 | Day surgery (SDC) | payer MEDICARE, MEDICAID, SELFPAY ==
[2021-03-09 07:36] VITALS: BP 95/69; PULSE 77; RESP 18; TEMP 36.1; O2SAT 97; BMI 36.1
--- NOTE | 2021-03-09 07:45 | PC.NURSE ---
Pt to GI lab for blood transfusion. Hg noted at 8.9. Attempted to notify Laurence Owen with no answer. Notified EDILBERTO Contreras, at [facility] that Hg above range for blood transfusion. Pt transported back to [facility] via transportation and personal wheelchair.
[2021-03-09 08:40] LABS: Hematocrit 29.3 % (37.0-47.0); Hemoglobin 8.9 g/dL (11.5-15.3)
== END ==
LOC: OPS 06:51 → GILAB 07:02
PROVIDERS: PCP Family Medicine; Visit Provider Family Medicine
DX: D64.9 Anemia, unspecified (principal)
CPT/HCPCS: 36415; 85014; 85018; 86850; 86900; 86920

== ENCOUNTER 2021-04-04 13:06 | Outpatient (CLI) | payer MEDICARE, MEDICAID, SELFPAY ==
[2021-04-04 13:19] LABS: Basophils % 0.4 %; Eosinophils # 0.2 10^3/uL (0.0-0.8); Eosinophils % 2.8 %; Hematocrit 28.2 % (37.0-47.0); Hemoglobin 8.9 g/dL (11.5-15.3); Lymphocytes # 1.7 10^3/uL (0.8-4.8); Mean Corpuscular HGB Conc 31.6 g/dL (30.0-36.0); Mean Corpuscular Hemoglobin 31.8 pg (28.0-34.0); Mean Corpuscular Volume 100.7 fl (81-99); Mean Platelet Volume 9.1 fL (7.4-10.4); Monocytes # 0.6 10^3/uL (0.2-0.9); Monocytes % 8.5 %; Neutrophils # 4.88 10^3/uL (1.8-7.7); Neutrophils % 64.8 %; Nucleated Red Blood Cells % 0 %; Platelet Count 356 10^3/cmm (130-400); White Blood Count 7.5 10^3/uL (4.0-10.0)
== END 2021-04-04 13:07 | disposition home or self-care (01) ==
LOC: LAB 13:09
PROVIDERS: PCP Family Medicine; Visit Provider Family Medicine
DX: D64.9 Anemia, unspecified (principal)
CPT/HCPCS: 85025

== ENCOUNTER → 2021-04-25 10:14 | Day surgery (SDC) | payer MEDICARE, MEDICAID, SELFPAY ==
[2021-04-25 10:40] VITALS: BP 143/80; PULSE 84; RESP 18; TEMP 36; O2SAT 95
[2021-04-25] MEDS: darbepoetin 60 mcg/0.3 mL INJ 40 MCG SUBCUT (10:44)
== END ==
PROVIDERS: PCP Family Medicine; Visit Provider Registered Nurse
DX: D64.9 Anemia, unspecified (principal)
CPT/HCPCS: 96372; J0881

== ENCOUNTER → 2021-05-30 10:31 | Day surgery (SDC) | payer MEDICARE, MEDICAID, SELFPAY ==
[2021-05-30 10:25] VITALS: BP 144/82; PULSE 88; RESP 18; TEMP 36.3; O2SAT 92
[2021-05-30] MEDS: darbepoetin 40 mcg/mL INJ SUBCUT (10:29)
== END ==
PROVIDERS: PCP Family Medicine; Visit Provider Registered Nurse
DX: N18.4 Chronic kidney disease, stage 4 (severe) (principal); D63.1 Anemia in chronic kidney disease
CPT/HCPCS: 96372; J0881

== ENCOUNTER → 2021-06-02 07:23 | Day surgery (SDC) | payer MEDICARE, MEDICAID, SELFPAY ==
[2021-06-02 07:39] LABS: Hemoglobin 8.8 g/dL (11.5-15.3)
[2021-06-02 07:41] VITALS: BP 124/88; PULSE 80; RESP 18; TEMP 36.2; O2SAT 96
--- NOTE | 2021-06-02 07:59 | PC.NURSE ---
Pt to GI lab for blood transfusion. Hg 8.8. Blood transfusion cancelled. Pt back to [facility]. Report called to Diane.
== END ==
PROVIDERS: PCP Family Medicine; Visit Provider Nurse Practitioner Family
DX: D64.9 Anemia, unspecified (principal)
CPT/HCPCS: 36415; 85014; 85018

== ENCOUNTER → 2021-07-04 09:55 | Day surgery (SDC) | payer MEDICARE, MEDICAID, SELFPAY ==
[2021-07-04] MEDS: darbepoetin 60 mcg/0.3 mL INJ SUBCUT (10:04)
[2021-07-04 10:08] VITALS: BP 144/58; PULSE 83; RESP 18; TEMP 36; O2SAT 95
== END ==
PROVIDERS: PCP Family Medicine; Visit Provider Registered Nurse
DX: N18.4 Chronic kidney disease, stage 4 (severe) (principal)
CPT/HCPCS: 96372; J0881

== ENCOUNTER 2021-07-25 08:14 | Outpatient (CLI) | payer MEDICARE, MEDICAID, SELFPAY ==
[2021-07-25 08:43] LABS: Basophils % 0.6 %; Eosinophils # 0.2 10^3/uL (0.0-0.8); Eosinophils % 4.1 %; Hematocrit 28.5 % (37.0-47.0); Hemoglobin 8.8 g/dL (11.5-15.3); Lymphocytes # 2.3 10^3/uL (0.8-4.8); Lymphocytes % 46.2 %; Mean Corpuscular HGB Conc 30.9 g/dL (30.0-36.0); Mean Corpuscular Hemoglobin 31.4 pg (28.0-34.0); Mean Corpuscular Volume 101.8 fl (81-99); Mean Platelet Volume 9.6 fL (7.4-10.4); Monocytes # 0.5 10^3/uL (0.2-0.9); Monocytes % 10.9 %; Neutrophils # 1.84 10^3/uL (1.8-7.7); Neutrophils % 37.8 %; Nucleated Red Blood Cells % 0 %; Platelet Count 302 10^3/cmm (130-400); Red Cell Distribution Width 12.1 % (12.1-15.1); White Blood Count 4.9 10^3/uL (4.0-10.0)
== END 2021-07-25 08:15 | disposition home or self-care (01) ==
PROVIDERS: PCP Family Medicine; Visit Provider Family Medicine
DX: Z01.89 Encounter for other specified special examinations (principal)
CPT/HCPCS: 85025

== ENCOUNTER → 2021-08-11 09:38 | Day surgery (SDC) | payer MEDICARE, MEDICAID, SELFPAY ==
[2021-08-11] MEDS: darbepoetin 60 mcg/0.3 mL INJ SUBCUT (09:46)
[2021-08-11 09:51] VITALS: BP 140/72; PULSE 86; RESP 18; TEMP 36.3; O2SAT 96
== END ==
PROVIDERS: PCP Family Medicine; Visit Provider Registered Nurse
DX: N18.4 Chronic kidney disease, stage 4 (severe) (principal); D63.1 Anemia in chronic kidney disease
CPT/HCPCS: 96372; J0881

== ENCOUNTER → 2021-09-08 08:33 | Day surgery (SDC) | payer MEDICARE, MEDICAID, SELFPAY ==
[2021-09-08] MEDS: darbepoetin 60 mcg/0.3 mL INJ 75 MCG SUBCUT (08:44)
[2021-09-08 08:50] VITALS: BP 133/68; PULSE 85; RESP 18; TEMP 36.1; O2SAT 96
== END ==
PROVIDERS: PCP Family Medicine; Visit Provider Registered Nurse
DX: N18.4 Chronic kidney disease, stage 4 (severe) (principal); D63.1 Anemia in chronic kidney disease
CPT/HCPCS: 96372; J0881

== ENCOUNTER → 2021-10-18 08:00 | Day surgery (SDC) | payer MEDICARE, MEDICAID, SELFPAY ==
[2021-10-18 08:05] VITALS: BP 136/67; PULSE 79; RESP 18; TEMP 36.4; O2SAT 95
[2021-10-18] MEDS: darbepoetin 60 mcg/0.3 mL INJ SUBCUT (08:07)
[2021-10-18] MEDS: darbepoetin 40 mcg/mL INJ SUBCUT (08:07)
== END ==
PROVIDERS: PCP Family Medicine; Visit Provider Registered Nurse
DX: N18.4 Chronic kidney disease, stage 4 (severe) (principal); D63.1 Anemia in chronic kidney disease
CPT/HCPCS: 96372; J0881

== ENCOUNTER → 2021-11-17 08:18 | Day surgery (SDC) | payer MEDICARE, MEDICAID, SELFPAY ==
[2021-11-17] MEDS: darbepoetin 60 mcg/0.3 mL INJ SUBCUT (08:31)
[2021-11-17] MEDS: darbepoetin 40 mcg/mL INJ SUBCUT (08:31)
[2021-11-17 08:35] VITALS: BP 128/64; PULSE 75; RESP 18; TEMP 36.1; O2SAT 98
== END ==
PROVIDERS: PCP Family Medicine; Visit Provider Registered Nurse
DX: N18.4 Chronic kidney disease, stage 4 (severe) (principal); D63.1 Anemia in chronic kidney disease
CPT/HCPCS: 96372; J0881

== ENCOUNTER → 2021-12-12 07:53 | Day surgery (SDC) | payer MEDICARE, MEDICAID, SELFPAY ==
[2021-12-12 08:00] VITALS: BP 153/76; PULSE 76; RESP 18; TEMP 36.1; O2SAT 98
[2021-12-12] MEDS: darbepoetin 40 mcg/mL INJ SUBCUT (08:03)
[2021-12-12] MEDS: darbepoetin 60 mcg/0.3 mL INJ SUBCUT (08:03)
== END ==
PROVIDERS: PCP Family Medicine; Visit Provider Registered Nurse
DX: D63.1 Anemia in chronic kidney disease (principal); N18.4 Chronic kidney disease, stage 4 (severe)
CPT/HCPCS: 96372; J0881

== ENCOUNTER → 2022-01-09 07:54 | Day surgery (SDC) | payer MEDICARE, MEDICAID, SELFPAY ==
[2022-01-09 07:58] VITALS: BP 134/78; PULSE 79; RESP 18; TEMP 36; O2SAT 98
[2022-01-09] MEDS: darbepoetin 60 mcg/0.3 mL INJ SUBCUT (08:09)
[2022-01-09] MEDS: darbepoetin 40 mcg/mL INJ SUBCUT (08:09)
== END ==
PROVIDERS: PCP Family Medicine; Visit Provider Registered Nurse
DX: D63.1 Anemia in chronic kidney disease (principal); N18.4 Chronic kidney disease, stage 4 (severe)
CPT/HCPCS: 96372; J0881

== ENCOUNTER → 2022-02-24 07:52 | Day surgery (SDC) | payer MEDICARE, MEDICAID, SELFPAY ==
[2022-02-24] MEDS: darbepoetin 60 mcg/0.3 mL INJ SUBCUT (08:04)
[2022-02-24] MEDS: darbepoetin 40 mcg/mL INJ SUBCUT (08:04)
[2022-02-24 08:05] VITALS: BP 140/93; PULSE 73; RESP 18; TEMP 35.8; O2SAT 96
== END ==
PROVIDERS: PCP Family Medicine; Visit Provider Registered Nurse
DX: N18.4 Chronic kidney disease, stage 4 (severe) (principal); D63.1 Anemia in chronic kidney disease
CPT/HCPCS: 96372; J0881

== ENCOUNTER → 2022-03-27 08:12 | Day surgery (SDC) | payer MEDICARE, MEDICAID, SELFPAY ==
[2022-03-27 08:20] VITALS: BP 140/89; PULSE 80; RESP 18; TEMP 35.9; O2SAT 97
[2022-03-27] MEDS: DARBEPOETIN 100 MCG/0.5 ML SUBCUT (08:22)
== END ==
PROVIDERS: PCP Family Medicine; Visit Provider Registered Nurse
DX: N18.4 Chronic kidney disease, stage 4 (severe) (principal); D63.1 Anemia in chronic kidney disease
CPT/HCPCS: 96372; J0881

== ENCOUNTER → 2022-05-01 07:51 | Day surgery (SDC) | payer MEDICARE, MEDICAID, SELFPAY ==
[2022-05-01] MEDS: darbepoetin 40 mcg/mL INJ SUBCUT (07:59)
[2022-05-01 08:00] VITALS: BP 116/79; PULSE 80; RESP 18; TEMP 35.6; O2SAT 99
[2022-05-01] MEDS: DARBEPOETIN 100 MCG/0.5 ML SUBCUT (08:00)
== END ==
PROVIDERS: PCP Family Medicine; Visit Provider Registered Nurse
DX: N18.4 Chronic kidney disease, stage 4 (severe) (principal); D63.1 Anemia in chronic kidney disease
CPT/HCPCS: 96372; J0881

== ENCOUNTER → 2022-06-05 07:55 | Day surgery (SDC) | payer MEDICARE, MEDICAID, SELFPAY ==
[2022-06-05 08:00] VITALS: BP 135/72; PULSE 75; RESP 18; TEMP 35.8; O2SAT 93
[2022-06-05] MEDS: DARBEPOETIN 100 MCG/0.5 ML SUBCUT (08:04)
== END ==
PROVIDERS: PCP Family Medicine; Visit Provider Registered Nurse
DX: N18.4 Chronic kidney disease, stage 4 (severe) (principal); D63.1 Anemia in chronic kidney disease
CPT/HCPCS: 96372; J0881

== ENCOUNTER → 2022-07-12 08:18 | Day surgery (SDC) | payer MEDICARE, MEDICAID, SELFPAY ==
[2022-07-12 08:25] VITALS: BP 112/87; PULSE 72; RESP 18; TEMP 36.4; O2SAT 96
[2022-07-12] MEDS: DARBEPOETIN 100 MCG/0.5 ML SUBCUT (08:25)
== END ==
PROVIDERS: PCP Family Medicine; Visit Provider Registered Nurse
DX: N18.4 Chronic kidney disease, stage 4 (severe) (principal); D63.1 Anemia in chronic kidney disease; Z79.899 Other long term (current) drug therapy
CPT/HCPCS: 96372; J0881

== ENCOUNTER → 2022-08-15 07:38 | Day surgery (SDC) | payer MEDICARE, MEDICAID, SELFPAY ==
[2022-08-15 07:45] VITALS: BP 134/70; PULSE 78; RESP 18; TEMP 35.8; O2SAT 98
[2022-08-15] MEDS: DARBEPOETIN 100 MCG/0.5 ML SUBCUT (07:47)
== END ==
PROVIDERS: PCP Family Medicine; Visit Provider Internal Medicine Nephrology
DX: N18.9 Chronic kidney disease, unspecified (principal); D63.1 Anemia in chronic kidney disease; Z79.899 Other long term (current) drug therapy
CPT/HCPCS: 96372; J0881

== ENCOUNTER → 2022-08-17 08:01 | Outpatient (BNVA) | payer MEDICARE, MEDICAID, SELFPAY | PROVIDERS: PCP Family Medicine; Visit Provider Podiatrist Foot & Ankle Surgery | DX: I73.9 Peripheral vascular disease, unspecified (principal); L60.3 Nail dystrophy; G81.91 Hemiplegia, unspecified affecting right dominant side; M21.612 Bunion of left foot; M21.611 Bunion of right foot | CPT/HCPCS: 11721; 99204 ==

== ENCOUNTER → 2022-09-19 08:01 | Day surgery (SDC) | payer MEDICARE, MEDICAID, SELFPAY ==
[2022-09-19] MEDS: darbepoetin 40 mcg/mL INJ SUBCUT (08:03)
[2022-09-19] MEDS: DARBEPOETIN 100 MCG/0.5 ML SUBCUT (08:03)
[2022-09-19 08:10] VITALS: BP 134/82; PULSE 75; RESP 18; TEMP 35.8; O2SAT 100
--- NOTE | 2022-09-19 08:15 | PC.NURSE ---
Pt referral to GI infusions for Aranesp 140 mcg injection. Pt tolerated without difficulty.
== END ==
PROVIDERS: PCP Family Medicine; Visit Provider Internal Medicine Nephrology
DX: N18.4 Chronic kidney disease, stage 4 (severe) (principal); D63.1 Anemia in chronic kidney disease; Z79.899 Other long term (current) drug therapy
CPT/HCPCS: 96372; J0881

== ENCOUNTER → 2022-10-16 07:53 | Day surgery (SDC) | payer MEDICARE, MEDICAID, SELFPAY ==
[2022-10-16] MEDS: darbepoetin 40 mcg/mL INJ SUBCUT (07:59)
[2022-10-16] MEDS: DARBEPOETIN 100 MCG/0.5 ML SUBCUT (08:00)
[2022-10-16 08:05] VITALS: BP 149/52; PULSE 94; RESP 18; TEMP 36; O2SAT 94
== END ==
PROVIDERS: PCP Family Medicine; Visit Provider Internal Medicine Nephrology
DX: N18.4 Chronic kidney disease, stage 4 (severe) (principal); D63.1 Anemia in chronic kidney disease; Z79.899 Other long term (current) drug therapy
CPT/HCPCS: 96372; J0881

== ENCOUNTER → 2022-11-14 08:00 | Day surgery (SDC) | payer MEDICARE, MEDICAID, SELFPAY ==
[2022-11-14] MEDS: DARBEPOETIN 100 MCG/0.5 ML SUBCUT ×2 (08:02)
[2022-11-14 08:11] VITALS: BP 130/62; PULSE 75; RESP 18; TEMP 35.8; O2SAT 96
== END ==
PROVIDERS: PCP Family Medicine; Visit Provider Registered Nurse
DX: N18.4 Chronic kidney disease, stage 4 (severe) (principal); D63.1 Anemia in chronic kidney disease; N25.81 Secondary hyperparathyroidism of renal origin
CPT/HCPCS: 96372; J0881

== ENCOUNTER → 2022-12-18 08:04 | Day surgery (SDC) | payer MEDICARE, MEDICAID, SELFPAY ==
[2022-12-18 08:08] VITALS: BP 151/83; PULSE 74; RESP 18; TEMP 36.4; O2SAT 97
[2022-12-18] MEDS: DARBEPOETIN SUBCUT (08:08)
== END ==
PROVIDERS: PCP Family Medicine; Visit Provider Registered Nurse
DX: N18.4 Chronic kidney disease, stage 4 (severe) (principal); D63.1 Anemia in chronic kidney disease; N25.81 Secondary hyperparathyroidism of renal origin
CPT/HCPCS: 96372; J0881

== ENCOUNTER 2023-01-24 07:50 | Oncology outpatient (recurring) (ONCR) | payer MEDICARE, MEDICAID, SELFPAY ==
[2023-01-24] MEDS: DARBEPOETIN 100 MCG/0.5 ML 200 MCG SUBCUT (08:27)
[2023-01-24 08:35] VITALS: BP 135/78; PULSE 76; RESP 17; TEMP 35.9; O2SAT 95
== END 2023-02-02 23:59 | disposition home or self-care (01) ==
PROVIDERS: PCP Family Medicine; Visit Provider Internal Medicine Medical Oncology
DX: N18.4 Chronic kidney disease, stage 4 (severe) (principal); D63.1 Anemia in chronic kidney disease
CPT/HCPCS: 96372; J0881